=== PATIENT | female | born 1995 | race Caucasian/White ===

== ENCOUNTER 2021-04-23 06:31 | Observation (INO) | payer OTHER, SELFPAY ==
--- NOTE | ~2021-04-23 | CT_ITS ---
EXAMINATION: CT abdomen pelvis w con INDICATION: Abdominal pain TECHNIQUE: Computed tomographic images of the abdomen and pelvis were obtained after the administrati on of 100 cc of Omnipaque 350 intravenous contrast. The dose-length product (DLP) was 1495.74 mGy-cm. Automated exposure control and iterative reconstruction technique were employed. COMPARISON: None available FINDINGS: The lung bases are clear. The heart size is normal. The liver, spleen, pancreas, gallbladde r, and adrenal glands are normal. There is a 2 mm nonobstructing stone of the right kidney. No pathol ogically enlarged abdominal or pelvic lymph nodes are identified. There are mildly dilated loops of s mall bowel in the midabdomen. The distal small bowel is decompressed. There appears to be a transitio n point near the umbilicus. A small amount of free fluid is present in the pelvis. There is no free i ntraperitoneal gas. There is a small amount of edema in the small bowel mesentery. IMPRESSION: 1. Small bowel obstruction. Reviewed, dictated and finalized at location A. IMPRESSION: 1. Small bowel obstruction.
--- NOTE | ~2021-04-23 | XR_ITS ---
EXAMINATION: XR sm bowel follow through WS EXAM DATE: 04/24/2021 09:54 INDICATION: SBO No Related Surg, Lt To Mid Abd Discomfort, Nausea . TECHNIQUE: Pegger radiograph was acquired. Omnipaque/water soluble solution administered for small vinay wel exam performed by radiologist Dajuan Grimes M.D.. KUB images after ingestion of contrast. The DAP f or this procedure was 166 Gycm2. A total of 10 images obtained for the exam. Correlation is made to CT abdomen pelvis from yesterday. FINDINGS: There is mildly dilated jejunum. Bowel loops progressively opacify with normal transit time between 1 and 1.5 hours. Ileal and jejunal fold patterns are normal. There is no small bowel wall t hickening or mass effect displacing small bowel. There are no intraluminal filling defects identifie d. Terminal ileal region unremarkable. IMPRESSION: Mildly dilated jejunum, normal transit time. Ileus. Reviewed, dictated and finalized at location A.
[2021-04-23 06:42] VITALS: BP 152/107; PULSE 101; RESP 20; O2SAT 97
[2021-04-23 06:57] LABS: Basophils Percent Auto 0.1 % (0.2-1.2); Hematocrit 41.5 % (37.0-47.0); Hemoglobin 13.4 g/dL (12.0-15.0); Immature Granulocyte Absolute 0.07 K/mm3 (0.00-0.031); Immature Granulocyte Percent A 0.5 % (0-0.5); Lymphocytes Absolute Auto 0.63 K/mm3 (0.9-3.2); Lymphocytes Percent Auto 4.6 % (18.3-44.2); Mean Corpuscular HGB Conc 32.3 g/dl (32-36); Mean Corpuscular Hemoglobin 27.1 pg (26-34); Mean Corpuscular Volume 83.8 fl (80-100); Mean Platelet Volume 10.1 fl (7.4-10.4); Monocytes Absolute Auto 0.4 K/mm3 (0.1-0.6); Monocytes Percent Auto 2.6 % (2.6-8.5); Neutrophils Absolute Auto 12.7 K/mm3 (1.3-6.7); Neutrophils Percent Auto 92.2 % (45.5-73.1); Platelet Count Result 400 k/mm3 (150-375); Red Blood Count 4.95 M/mm3 (4.2-5.4); Red Cell Distribution Width 14.2 % (11.5-14.5); White Blood Count 13.8 K/mm3 (4.5-10.0)
[2021-04-23 07:18] LABS: Alanine Aminotransferase 16 U/L (4-35); Albumin Level 4.3 g/dL (3.5-5.1); Alkaline Phosphatase 75 U/L (38-126); Anion Gap 13 mmol/L (8-16); Aspartate Amino Transferase 22 U/L (14-36); Bilirubin,Total 0.5 mg/dL (0.2-1.3); Blood Urea Nitrogen 14 mg/dL (7-17); Calcium 9.5 mg/dL (8.4-10.2); Carbon Dioxide 20 mmol/L (22-30); Chloride 105 mmol/L (98-107); Estimated CRCL calculation 145 ml/min; Estimated Glomerular Filt Rate > 60; Glucose 143 mg/dL (65-110); Lipase 102 U/L (23-300); Potassium 4.5 mmol/L (3.4-5.0); Sodium 138 mmol/L (137-145)
[2021-04-23] MEDS: SODIUM CHLORIDE 0.9% IV 1,000 ML 999 ML IV CONT (08:07)
[2021-04-23] MEDS: ONDANSETRON INJ 4 MG/2 ML VIAL IV PUSH (08:07)
[2021-04-23 08:20] LABS: Add Urine Microscopic? YES; Appearance Urine Cloudy (Clear); Bacteria Urine Trace /hpf; Bilirubin Urine Negative (Negative); Color Urine Yellow (Yellow); Glucose Urine UA Negative (Negative); Ketones Urine 1+ mg/dL (Negative); Leukocyte Esterase Ur Trace LEU/UL (Negative); Mucus Urine Heavy /lpf; Nitrate Urine Negative (Negative); Protein Urine 2+ mg/dL (Negative); Squamous Epithelial Cell Urine Many /hpf (Few); Urobilinogen Urine Negative mg/dL (<2.0)
[2021-04-23 08:25] LABS: Blood Urine Negative (Negative); Specific Grav Ur 1.033 (1.001-1.035)
--- NOTE | 2021-04-23 10:02 | ED.ABDPAIN ---
HPI - Abdominal Pain General Chief Complaint: Abdominal Pain Stated Complaint: ABD pain, N/V x1 day Time Seen by Provider: 04/23/21 07:11 Source: patient History of Present Illness HPI narrative: Patient presents with abdominal pain. Reports abdominal pain for the past 1 to 2 days. Pain is primarily around her bellybutton is associated with nausea and vomiting. Pain is sharp, constant, no clear aggravating or alleviating factors. Denies any diarrhea or constipation. Any fevers, cough, congestion her pain does not radiate. She denies any chest pain or shortness of breath. Related Data Home Medications Medication Instructions Recorded Confirmed bupropion HCl 300 mg PO QAM 04/23/21 04/23/21 buspirone 15 mg TID 04/23/21 04/23/21 ergocalciferol (vitamin D2) 04/23/21 risperidone 1 mg PO DAILY 04/23/21 04/23/21 venlafaxine 225 mg PO DAILY 04/23/21 04/23/21 Allergies Allergy/AdvReac Type Severity Reaction Status Date / Time No Known Allergies Allergy Unknown Verified 04/23/21 12:49 Review of Systems Review of Systems: CONSTITUTIONAL: Denies fever, chills, or sweats. EYES: Denies visual changes, redness, or discharge. ENT: Denies rhinorrhea, congestion, sore throat, or otalgia. CARDIOVASCULAR: Denies chest pain, palpitations, or edema. RESPIRATORY: Denies cough or dyspnea. GASTROINTESTINAL: Reports abdominal pain nausea and vomiting. GENITOURINARY: Denies dysuria or hematuria. SKIN: Denies rash or itching. MUSCULOSKELETAL: Denies back pain, joint pain, or myalgia. NEUROLOGIC: Denies headache, numbness, dizziness, or weakness. PSYCHIATRIC: Denies anxiety or depression. 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 Nonsmoker. Denies alcohol and illicit substance use. She designates her mother Margaret Whittington as her surrogate decision maker. Code status: Full code. Exam Narrative: GENERAL: Well-appearing, well-nourished, and in no acute distress. HEAD: Normocephalic, atraumatic. EYES: PERRLA and EOMI. ENT: Nares clear, no rhinorrhea or epistaxis. Mucous membranes moist. NECK: Supple. No masses. No JVD CHEST: Clear to auscultation. No respiratory distress. No wheezes rales or rhonchi HEART: Regular rate and rhythm. No murmur heard. Normal peripheral pulses. ABDOMEN: Moderate tenderness in the abdomen most noted around the umbilicus, nondistended, normal active bowel sounds. EXTREMITIES: Normal range of motion. No edema. SKIN: Warm, dry, no rash. NEURO: No focal deficits. Alert and oriented x3. PSYCH: Normal mood and affect. Course Reevaluation(s) Reevaluation #1: Discussed with patient and general surgery. Primary concern is for small bowel obstruction patient will be admitted to the hospitalist team with surgery following along. Patient comfortable with inpatient plan. Date: 04/23/21 Time: 10:04 Vital Signs Vital signs: Vital Signs Pulse Rate 101 H 04/23/21 06:42 Respiratory Rate 20 04/23/21 06:42 Blood Pressure 152/107 H 04/23/21 06:42 Pulse Oximetry 97 04/23/21 06:42 Temperature 36.5 C 04/23/21 13:09 Pulse Rate 104 H 04/23/21 13:09 Respiratory Rate 18 04/23/21 13:09 Blood Pressure 146/79 H 04/23/21 13:09 Pulse Oximetry 94 04/23/21 13:09 MDM - Abdominal Pain MDM Narrative Medical decision making narrative: Patient presented with abdominal pain and nausea and vomiting. Labs and imagin
[2021-04-23] MEDS: fentaNYL CITRATE INJ (*CRX) 100 MCG/2 ML VIAL 50 MCG IV PUSH ×2 (10:33→14:41)
--- NOTE | 2021-04-23 10:51 | PC.NURSE ---
attempted 18Fr NGT x2 without success. EDP notified. Will attempt with smaller gauge.
--- NOTE | 2021-04-23 11:53 | PC.NURSE ---
14Fr NGT attempted x2. Pt not tolerating well. EDP notified.
[2021-04-23 12:37] VITALS: PULSE 104; RESP 16; TEMP 36.6; O2SAT 99
--- NOTE | 2021-04-23 12:47 | ADMGEN ---
This patient, Cheryl Reddy, was admitted to Medical Room 340-01. Patient/family oriented to hospital policies and general routines including ID bracelet, bed and alarms, visiting hours, pain management, procedures, bathroom and other care routines, personal items, smoking policy, room service/diet, and visiting hours. Information on how to activate the Rapid Response Team has been discussed. Patient/Family are encouraged to report perceived risks to care and to ask questions if they do not understand what they are told or what they should do.
[2021-04-23 13:09] VITALS: BP 146/79; PULSE 104; RESP 18; TEMP 36.5; O2SAT 94
--- NOTE | 2021-04-23 13:58 | PC.NURSE ---
This nurse attempted to place a NG tube, patient grabbed nurses hand when she started advancing the tube and stated NO, I don't want this STOP Hospitalist made aware of patient refusing NG tube placement.
--- NOTE | 2021-04-23 14:00 | PM.IMHP ---
H&P: HPI History of Present Illness Date/Time: 04/23/21 14:00 Chief Complaint: Abdominal pain, nausea, and vomiting. Narrative: This is a 25-year-old female with bipolar disorder, depression, anxiety who presented to the emergency department earlier this morning via private vehicle from home for evaluation of abdominal pain, nausea, and vomiting. Two days ago she developed pretty sudden onset of mid abdominal cramping associated with nausea and several episodes of emesis. Initially she thought she possibly had food poisoning however no one else who ate the same meal had similar symptoms. Her symptoms continued overnight and she did not sleep well due to the pain and thus she came in today for evaluation. CT of the abdomen and pelvis showed findings concerning for small-bowel obstruction and she is being admitted in this setting. Unfortunately the patient was not very cooperative and could not tolerate NG placement. She continues to have mild periumbilical cramping and some nausea but she has not had any further episodes of emesis. She denies flatus however has had some episodes of belching. She has never had similar symptoms in the past. She does mention having a pretty substantial abdominal surgery as an though she does not recall what was done. Review of Systems Review of Systems: Twelve systems were reviewed. No fever, chills, or sweats. No recent cold or flu symptoms. She denies chest pain shortness of breath. No hematemesis, melena, or hematochezia. Last menstrual period was on 04/04/2021. Except as documented, all other systems were reviewed and are negative. [facility] Past Medical History Medical History (Updated 04/23/21 @ 22:31 by Lenore Chowdhury PA-C) Anxiety Bipolar disorder Depression Surgical History Surgical History (Updated 04/23/21 @ 22:31 by Lenore Chowdhury PA-C) History of open reduction and internal fixation (ORIF) procedure Right foot fracture. Hx of abdominal surgery Surgery as an , likely pyloric stenosis or malrotation. Family History Family History Mother ESRD (end stage renal disease) on dialysis Social History Social History Social History: The patient lives in [place]. Nonsmoker. Denies alcohol and illicit substance use. She designates her mother Margaret Whittington as her surrogate decision maker. Code status: Full code. Meds Home Medications and Allergies Home Medications Medication Instructions Recorded Confirmed Type bupropion HCl 300 mg PO QAM 04/23/21 04/23/21 History buspirone 15 mg TID 04/23/21 04/23/21 History ergocalciferol (vitamin D2) 04/23/21 History risperidone 1 mg PO DAILY 04/23/21 04/23/21 History venlafaxine 225 mg PO DAILY 04/23/21 04/23/21 History Allergies Allergy/AdvReac Type Severity Reaction Status Date / Time No Known Allergies Allergy Unknown Verified 04/23/21 12:49 Vital Signs Vital Signs - 24 hr 04/23/21 06:42 04/23/21 12:37 04/23/21 13:09 Temperature 97.8 F 97.7 F Pulse Rate 101 H 104 H 104 H Respiratory Rate 20 16 18 Blood Pressure 152/107 H 146/79 H Pulse Oximetry 97 99 94 Exam Narrative: General: Well-developed female lying on her left side in bed in no acute distress. Weight: 13 kg. BMI: 44.1. HEENT: PERRL, EOMI. Sclerae anicteric. Tacky mucous membranes. Neck: Supple. Respiratory: Lungs are clear to auscultation bilaterally. Cardiovascular: Regular rate and rhythm with S1-S2. Gastrointestinal: Abdomen is soft and obese with hypoactive bowel sounds. She is tender to palpation in the periumbilical region. Upper abdominal scar noted from surgery as an . Skin: Warm and dry. No rash or lesions on limited exam. Extremities: No cyanosis, clubbing, or edema. Radial and pedal pulses intact. Neurological: Alert. Cranial nerves 2-12 are grossly intact. No gross focal deficits to casual conversation
[2021-04-23] MEDS: SODIUM CHLORIDE 0.9% IV 1,000 ML 125 ML IV CONT ×2 (14:42→22:32)
--- NOTE | 2021-04-23 16:05 | PM.CNGS ---
Assessment and Plan Assessment and plan (1) Small bowel obstruction: Code(s): K56.609 - Unspecified intestinal obstruction, unspecified as to partial versus complete obstruction Status: Acute Assessment and Plan: I have reviewed the CT. There does appear to be some dilated small bowel and then distal decompressed small bowel as well as some mesenteric edema. Do not see a closed-loop bowel obstruction, but this does appear possibly to be a bowel obstruction related to adhesions from her surgery as an . Other potential diagnoses include gastroenteritis or food bolus. NG tube placement was attempted, however patient unable to tolerate placement and was not very cooperative. I discussed importance of trying to have NG tube placed to decompress the bowel, but I do not anticipate this being very successful. Will plan for a Gastrografin small-bowel follow-through in a.m.. Discussed possibility of requiring surgical exploration if bowel obstruction persists. (2) Bipolar disorder: Code(s): F31.9 - Bipolar disorder, unspecified Status: Acute (3) BMI 40.0-44.9, adult: Code(s): Z68.41 - Body mass index [BMI] 40.0-44.9, adult Status: Acute (4) Hx of abdominal surgery: Code(s): Z98.890 - Other specified postprocedural states Status: Inactive History of Present Illness Consult details Consult date: 04/23/21 Reason for consult: other (small bowel obstruction) Requesting physician: Kai Santana MD Narrative: This is a 25-year-old woman who presented to the emergency department with complaints of abdominal pain that started 2 days ago. I am asked to see her in regards to a possible small-bowel obstruction. She states that she was having normal bowel movements, but 2 days ago began experiencing abdominal pain. She has been experiencing nausea and vomiting as well. She did have a bowel movement last night that she states was normal. She is not currently passing any flatus. She has never had any symptoms like this before. She does not recall anything in particular that she ate that could have caused this, and she reports no other ill contacts. She did have some kind of abdominal surgery as an infant and has an upper abdominal transverse scar extending from just above her umbilicus out lateral to the right. She is not sure what particular type of surgery she had. NG tube placement was attempted in the emergency department, but patient states that they were unable to place the tube due to her having too much discomfort. Review of Systems Review of Systems: All systems reviewed & are unremarkable except as noted in HPI and below Constitutional: Constitutional: Denies chills and Denies fever(s) Eyes: Eyes: Denies change in vision ENT: Denies hearing loss, Denies neck pain and Denies sore throat Cardiovascular: Cardiovascular: Denies chest pain and Denies dyspnea Respiratory: Respiratory: Denies cough, Denies dyspnea and Denies wheezing Gastrointestinal: Gastrointestinal: Reports as per HPI Genitourinary: Genitourinary: Denies hematuria and Denies dysuria Musculoskeletal: Musculoskeletal: Denies arthralgias, Denies joint swelling and Denies neck pain Allergic/Immunologic: Allergic/Immunologic: Denies wheezing [facility] Past Medical History Medical History (Updated 04/23/21 @ 16:17 by Rubens Phoenix DO) Bipolar disorder Surgical History Surgical History (Updated 04/23/21 @ 16:17 by Rubens Phoenix DO) Hx of abdominal surgery surgery as an infant, likely pyloric stenosis or malrotation Family History Family History Mother ESRD (end stage renal disease) on dialysis Social History Social History Social History: The patient lives in [place]. Nonsmoker. Denies alcohol and illicit substance use. She designates her mother Margaret Whittington as her surrogate dec
--- NOTE | 2021-04-23 19:26 | PC.NURSE ---
Dr. Phoenix is aware that no NG tube was placed.
[2021-04-23 21:16] VITALS: PULSE 100; RESP 18; O2SAT 96
[2021-04-23 22:00] VITALS: BP 143/53; PULSE 81; RESP 16; TEMP 36.2; O2SAT 99
[2021-04-24 04:26] VITALS: BP 151/75; PULSE 84; RESP 16; TEMP 36.4; O2SAT 97
[2021-04-24 06:06] LABS: Hematocrit 33.9 % (37.0-47.0); Hemoglobin 10.5 g/dL (12.0-15.0); Mean Corpuscular Hemoglobin 26.9 pg (26-34); Mean Corpuscular Volume 86.9 fl (80-100); Mean Platelet Volume 10.1 fl (7.4-10.4); Platelet Count Result 294 k/mm3 (150-375); Red Cell Distribution Width 14.6 % (11.5-14.5); White Blood Count 8.1 K/mm3 (4.5-10.0)
[2021-04-24 06:22] LABS: Anion Gap 7 mmol/L (8-16); Blood Urea Nitrogen 11 mg/dL (7-17); Carbon Dioxide 25 mmol/L (22-30); Chloride 108 mmol/L (98-107); Estimated CRCL calculation 126 ml/min; Estimated Glomerular Filt Rate > 60; Glucose 101 mg/dL (65-110); Magnesium 2.2 mg/dL (1.6-2.3); Potassium 3.1 mmol/L (3.4-5.0); Sodium 140 mmol/L (137-145)
[2021-04-24] MEDS: SODIUM CHLORIDE 0.9% IV 1,000 ML 125 ML IV CONT (06:33)
--- NOTE | 2021-04-24 08:21 | PC.NURSE ---
0810 patient taken to xray by ronda.
--- NOTE | 2021-04-24 11:29 | PM.PNGS ---
Progress Note: A&P Assessment and Plan (1) Small bowel obstruction: Code(s): K56.609 - Unspecified intestinal obstruction, unspecified as to partial versus complete obstruction Status: Acute Assessment and Plan: I reviewed the small-bowel follow-through. No evidence of obstruction. Will begin patient on clear liquid diet and advance as tolerated. Okay to discharge from surgical standpoint. Patient may have just had reactive ileus to gastroenteritis. (2) Bipolar disorder: Code(s): F31.9 - Bipolar disorder, unspecified Status: Acute (3) BMI 40.0-44.9, adult: Code(s): Z68.41 - Body mass index [BMI] 40.0-44.9, adult Status: Acute (4) Nausea & vomiting: Qualifiers: Vomiting Intractability: intractable Vomiting type: unspecified Qualified Code(s): R11.2 - Nausea with vomiting, unspecified Code(s): R11.2 - Nausea with vomiting, unspecified Status: Acute Subjective Subjective Date/Time Seen: 04/24/21 11:29 Interval history: no more nausea or vomiting. Patient still having some abdominal pain. States she has not had a bowel movement yet. Exam GI: Inspection: non-distended and obesity GI Palp: Yes Soft to palpation and Yes Tenderness to palpation present (GI) ( Mild generalized tenderness) Auscultation: normal bowel sounds Objective Data Vital Signs Vital Signs: Vital Signs - 24 hr 04/23/21 12:37 04/23/21 13:09 04/23/21 21:16 Temperature 36.6 C 36.5 C Pulse Rate 104 H 104 H 100 Respiratory Rate 16 18 18 Blood Pressure 146/79 H Pulse Oximetry 99 94 96 04/23/21 22:00 04/24/21 04:26 Temperature 36.2 C L 36.4 C Pulse Rate 81 84 Respiratory Rate 16 16 Blood Pressure 143/53 H 151/75 H Pulse Oximetry 99 97 Intake/Output Intake/Output: Intake & Output 04/21/21 04/22/21 04/23/21 04/24/21 23:59 23:59 23:59 23:59 Intake Total 2000 1000 Output Total 100 200 Balance 1900 800 Meds/Results Medications: Active Medications Generic Name Dose Route Start Last Admin Trade Name Freq PRN Reason Stop Dose Admin Acetaminophen 650 mg 04/24/21 10:55 Acetaminophen 325 Mg Tablet PO Q6H PRN pain or fever Bupropion HCl 300 mg 04/24/21 10:55 Bupropion Hcl Xl (24 Hr) 150 Mg Tabcr PO QAM [facility] Buspirone HCl 15 mg 04/24/21 10:55 Buspirone Hcl 5 Mg Tablet PO TID [facility] Fentanyl Citrate 50 mcg 04/23/21 10:07 04/23/21 14:41 Fentanyl Citrate Inj (*Crx) 100 Mcg/2 Ml Vial IV PUSH 50 mcg Q2H PRN Administration Pain Rated 7-10 Sodium Chloride 1,000 mls @ 125 mls/hr 04/23/21 10:10 04/24/21 06:33 Normal Saline Iv IV CONT 125 mls/hr .Q8H RAMANA Administration Potassium Chloride 500 mls @ 125 mls/hr 04/24/21 08:30 04/24/21 10:07 Kcl 40 Meq/D5w 500 Ml Peripheral IVPB 04/24/21 12:29 125 mls/hr ONCE ONE Administration Ondansetron HCl 4 mg 04/23/21 10:07 Ondansetron Inj 4 Mg/2 Ml Vial IV PUSH Q4H PRN Nausea Risperidone 1 mg 04/24/21 10:55 Risperidone 1 Mg Tablet PO DAILY [facility] Venlafaxine HCl 225 mg 04/24/21 11:00 Venlafaxine Hcl Xr 75 Mg Cap.Er.24h PO DAILY [facility] Radiology Results: ITS Impressions Abdomen/Pelvis CT 04/23/21 08:07 IMPRESSION: 1. Small bowel obstruction. Small Bowel X-Ray 04/24/21 09:56 IMPRESSION: Mildly dilated jejunum, normal transit time. Ileus. Labs Labs: Laboratory Results - last 24 hr 04/24/21 04/24/21 05:13 05:13 WBC 8.1 RBC 3.90 L Hgb 10.5 L Hct 33.9 L MCV 86.9 MCH 26.9 MCHC 31.0 L RDW 14.6 H Plt Count 294 MPV 10.1 Sodium 140 Potassium 3.1 L Chloride 108 H Carbon Dioxide 25 Anion Gap 7 L BUN 11 Creatinine 0.70 Estim Creat Clear Calc 126 Estimated GFR > 60 Glucose 101 Calcium 8.0 L Magnesium 2.2 Quality VTE Prophylaxis VTE prophylaxis: mechanical ordered Amg Follow-up Billing Inpatient Follow-up [id number] [address]
[2021-04-24] MEDS: ACETAMINOPHEN 325 MG TABLET 650 MG PO (11:32)
[2021-04-24] MEDS: VENLAFAXINE HCL XR 75 MG CAP.ER.24H 225 MG PO (11:32)
[2021-04-24] MEDS: buPROPion HCL XL (24 HR) 150 MG TABCR 300 MG PO (11:32)
[2021-04-24] MEDS: busPIRone HCL 5 MG TABLET 15 MG PO (11:33)
[2021-04-24 14:00] VITALS: BP 112/97; PULSE 85; RESP 20; TEMP 36.2; O2SAT 98
--- NOTE | 2021-04-24 15:22 | PM.DS ---
DS: Admitting Diagnosis Discharge Date 04/24/21 Admitting Diagnosis sbo DS: Discharge Diagnosis Discharge Diagnosis (1) Small bowel obstruction: Code(s): K56.609 - Unspecified intestinal obstruction, unspecified as to partial versus complete obstruction Status: Acute (2) Elevated blood pressure reading: Code(s): R03.0 - Elevated blood-pressure reading, without diagnosis of hypertension Status: Acute (3) Bipolar disorder: Code(s): F31.9 - Bipolar disorder, unspecified Status: Acute (4) Depression: Code(s): F32.A - Depression, unspecified Status: Acute (5) Anxiety: Code(s): F41.9 - Anxiety disorder, unspecified Status: Acute (6) BMI 40.0-44.9, adult: Code(s): Z68.41 - Body mass index [BMI] 40.0-44.9, adult Status: Acute DS: Summary Hospital Course Hospital Course: dos 04/24/21 Patient is a 25-year-old female with a past medical history of bipolar disorder who presented emergency room on 04/23/2021 for abdominal pain with nausea and vomiting without associated diarrhea or constipation. Vitals in the ER were pulse 101, respiratory rate 20, blood pressure 152/107, pulse ox 97 on room air, temperature 36.5? C. Initial white blood cell count 13.8, hemoglobin 13.4, hematocrit 41.5, platelets 400. BMP relatively normal with the exception of CO2 20 and renal glucose 143. Urine test negative. UA shows evidence of contamination, no UTI suspected and urine culture negative. Abdominal CT showed small-bowel obstruction and patient was admitted to the hospitalist service. She had history of abdominal surgery as a child but did not remember the specifics. She refused an NG tube during her stay the likely her symptoms improved gradually. Small-bowel follow-through the next day showed mildly dilated jejunal with a normal transit time suggesting possible ileus. The patient's diet was increased and she tolerated a regular diet the day of discharge. Her blood pressure did run high occasionally. Blood pressure could be high due to pain and IV fluids. Patient has no history of hypertension but is overweight. I recommended that she follow-up with a primary care physician in 1-2 weeks about this stay if she continues to be high she needs to talk to them about starting medication outpatient. She understands untreated high blood pressure can cause heart attacks and strokes. Overall, the patient was back to baseline with no complaints. She was educated about the worrisome signs and symptoms to come back to emergency room for and was discharged in stable condition Time Spent with Patient Time attestation: Total time spent providing and/or coordinating discharge services: 38 minutes Exam Narrative: General: Well developed well nourished patient in NAD HEENT: normocephalic Neck: supple Neuro: Alert and oriented x4 CV:RRR Resp:CTA Abd: Soft, non distended. Slight pain to palpation. Positive bowel sounds Extremities: No swelling, erythema, or pain to palpation. DS: Data Data Completed and Pending Labs on day of discharge: Labs from last 24 hours 04/24/21 04/24/21 05:13 05:13 WBC 8.1 RBC 3.90 L Hgb 10.5 L Hct 33.9 L MCV 86.9 MCH 26.9 MCHC 31.0 L RDW 14.6 H Plt Count 294 MPV 10.1 Sodium 140 Potassium 3.1 L Chloride 108 H Carbon Dioxide 25 Anion Gap 7 L BUN 11 Creatinine 0.70 Estim Creat Clear Calc 126 Estimated GFR > 60 Glucose 101 Calcium 8.0 L Magnesium 2.2 Discharge Plan Discharge Attending physician on discharge: Vidal Carbone Consulting providers: Rubens Phoenix Discharging Clinician: Michela Vasquez Patient Disposition: Home, Self-Care Activity: as tolerated Diet: as tolerated and regular Discharge Instructions: -Follow up with a primary care doctor. I have provided you with a number to the one who was oim consultant when you came in. Talk to them about your blo
== END 2021-04-24 18:26 | disposition home or self-care (01) ==
LOC: ANHED 10:06 → ANH3MED 12:08
PROVIDERS: General Practice; Physician Assistant; Admitting Provider Internal Medicine; Emergency Provider Emergency Medicine; Visit Provider Family Medicine
DX: K56.609 Unspecified intestinal obstruction, unspecified as to partial versus complete obstruction (principal); R03.0 Elevated blood-pressure reading, without diagnosis of hypertension; F31.9 Bipolar disorder, unspecified; F41.8 Other specified anxiety disorders
CPT/HCPCS: 36415; 74177; 74250; 80048; 80053; 81001; 81025; 83690; 83735; 85025; 85027; 87086; 96361; 96374; 96375; 96376; 99285; A9270; G0378; G0379; J2405; J3010; J3480; J7030; Q9967

== ENCOUNTER → 2021-05-28 02:09 | Outpatient (CLI) | payer OTHER, SELFPAY ==
[2021-05-28 17:54] LABS: SARS-CoV-2 RNA PCR Positive
== END ==
PROVIDERS: PCP Physician Assistant; Visit Provider Physician Assistant
DX: U07.1 COVID-19 (principal)
CPT/HCPCS: C9803; U0003; U0005

== ENCOUNTER 2021-07-01 13:22 | Emergency (ER) | payer OTHER, SELFPAY ==
--- NOTE | ~2021-07-01 | CT_ITS ---
EXAMINATION: CT abdomen pelvis w con DATE: 07/01/2021 15:36 INDICATION: Right flank pain. TECHNIQUE: Computed tomography (CT) of the abdomen and pelvis was performed with 100 mL Omnipaque 350 intravenous contrast. Automated exposure control and iterative reconstruction technique were employe d. The dose-length product was 1349.30 mGy-cm. COMPARISON: CT abdomen and pelvis 04/23/2021 FINDINGS: The visualized portions of the lung bases demonstrate minimal atelectasis. No pleural effus ion. The heart size is normal. No pericardial effusion. The liver, gallbladder, spleen, pancreas, adr enal glands, and left kidney are normal. There is a delayed right-sided contrast nephrogram. There is mild right hydronephrosis and hydroureter. There is asymmetric edema around right kidney. There is a 3 mm stone in distal right ureter. There are no dilated loops of bowel. The appendix is normal. Ther e are no pathologically enlarged lymph nodes. There is no free intraperitoneal fluid. There is mild t horacolumbar spondylosis. IMPRESSION: 1. 3 mm stone in distal right ureter with mild right hydronephrosis and hydroureter. Reviewed, dictated and finalized at location A. D CARE NURSE IMPRESSION: 1. 3 mm stone in distal right ureter with mild right hydronephrosis and hydrour eter.
[2021-07-01 13:25] VITALS: BP 149/84; PULSE 119; RESP 18; TEMP 36.6; O2SAT 99
[2021-07-01 13:48] VITALS: BP 150/94; PULSE 101; RESP 16; TEMP 36.7; O2SAT 97
--- NOTE | 2021-07-01 13:50 | PC.NURSE ---
Addendum entered by Terri Subramanian RN 07/01/21 14:16: Pt was able to stand up on own with staff around her. Pt is alert & oriented x 4, no distress noted. Pt has no other complaints. Original Note: pt was seen lying on the floor while this rn triaging a pt. pt was lying face down on the floor in the waiting room, pt was awake, stated she passed out. this rn did not hear her fall. pt brought back into triage area, vs taken, ed charge made aware. pt currently sitting in waiting room, in a w/c in front of intake desk.
--- NOTE | 2021-07-01 14:39 | ED.ABDPAIN ---
HPI - Abdominal Pain General Chief Complaint: Abdominal Pain Stated Complaint: R sided flank pain Time Seen by Provider: 07/01/21 14:31 Source: patient Mode of arrival: ambulatory Limitations: no limitations History of Present Illness HPI narrative: 26 years old white female presents with right abdominal pain radiating to right flank area wake her up at 3 AM associated with nausea and vomiting. Patient denies having similar symptoms. Patient is not vaccinated for COVID. She is telling me that she does not believe in Covid. History of depression, bipolar, she does not smoke or drink or uses drugs. Related Data Home Medications Medication Instructions Recorded Confirmed bupropion HCl 300 mg PO QAM 04/23/21 04/23/21 buspirone 15 mg TID 04/23/21 04/23/21 risperidone 1 mg PO DAILY 04/23/21 04/23/21 venlafaxine 225 mg PO DAILY 04/23/21 04/23/21 Allergies Allergy/AdvReac Type Severity Reaction Status Date / Time No Known Allergies Allergy Unknown Verified 07/01/21 15:11 Review of Systems Review of Systems: CONSTITUTIONAL: Denies fever, chills, or sweats. EYES: Denies visual changes, redness, or discharge. ENT: Denies rhinorrhea, congestion, sore throat, or otalgia. CARDIOVASCULAR: Denies chest pain, palpitations, or edema. RESPIRATORY: Denies cough or dyspnea. GASTROINTESTINAL: Denies abdominal pain, nausea, vomiting, or diarrhea. GENITOURINARY: Denies dysuria or hematuria. SKIN: Denies rash or itching. MUSCULOSKELETAL: Denies back pain, joint pain, or myalgia. NEUROLOGIC: Denies headache, numbness, or weakness. PSYCHIATRIC: Denies anxiety or depression. [facility] Past Medical History Medical History Anxiety Bipolar disorder Depression Surgical History Surgical History History of open reduction and internal fixation (ORIF) procedure Right foot fracture. Hx of abdominal surgery Surgery as an infant, likely pyloric stenosis or malrotation. Family History Family History Mother ESRD (end stage renal disease) on dialysis Social History Social History Social History: The patient lives in [place]. Nonsmoker. Denies alcohol and illicit substance use. She designates her mother Margaret Whittington as her surrogate decision maker. Code status: Full code. Exam Narrative: General appearance: Well-developed, well-nourished Skin: Normal color Head: Normocephalic, nontraumatic Eyes: Clear conjunctiva ENT: Oropharynx normal, ears normal, nose normal Neck: Supple, nontender Chest and respiratory: Airway patent, no respiratory distress, no accessory muscle use Heart: Regular rate/rhythm Abdomen: Soft, right abdominal tenderness through the right lower and right upper quadrant, right flank tenderness, no organomegaly, quiet bowel sounds Vascular: Normal peripheral pulses, normal capillary refill. Musculoskeletal: Normal range of motion, nontender back Neurologic: Alert and oriented ?3, MRI TECHNICIAN is normal as tested, no gross motor deficit Course Course Emergency Course: Stable Vital Signs Vital signs: Vital Signs Temperature 36.6 C 07/01/21 13:25 Pulse Rate 119 H 07/01/21 13:25 Respiratory Rate 18 07/01/21 13:25 Blood Pressure 149/84 H 07/01/21 13:25 Pulse Oximetry 99 07/01/21 13:25 Temperature 36.7 C 07/01/21 13:48 Pulse Rate 85 07/01/21 15:09 Respiratory Rate 18 07/01/21 15:09 Blood Pressure 161/86 H 07/01/21 15:09 Pulse Oximetry 100 07/01/21 15:09 MDM - Abdominal Pain MDM Narrative Medical decision gabrielle
[2021-07-01] MEDS: MORPHINE SULFATE (*CRX) 4 MG/ML INJ IV PUSH (15:06)
[2021-07-01] MEDS: ONDANSETRON INJ 4 MG/2 ML VIAL IV PUSH (15:06)
[2021-07-01 15:07] LABS: Basophils Percent Auto 0.2 % (0.2-1.2); Hematocrit 41.4 % (37.0-47.0); Hemoglobin 13.3 g/dL (12.0-15.0); Immature Granulocyte Absolute 0.04 K/mm3 (0.00-0.031); Immature Granulocyte Percent A 0.3 % (0-0.5); Lymphocytes Absolute Auto 0.53 K/mm3 (0.9-3.2); Mean Corpuscular HGB Conc 32.1 g/dl (32-36); Mean Corpuscular Volume 84.1 fl (80-100); Mean Platelet Volume 10.1 fl (7.4-10.4); Monocytes Absolute Auto 0.7 K/mm3 (0.1-0.6); Monocytes Percent Auto 5.4 % (2.6-8.5); Neutrophils Percent Auto 90.1 % (45.5-73.1); Platelet Count Result 312 k/mm3 (150-375); Red Blood Count 4.92 M/mm3 (4.2-5.4); White Blood Count 13.3 K/mm3 (4.5-10.0)
[2021-07-01] MEDS: SODIUM CHLORIDE 0.9% IV 1,000 ML 999 ML IV CONT (15:07)
[2021-07-01 15:09] VITALS: BP 161/86; PULSE 85; RESP 18; O2SAT 100
[2021-07-01 15:15] LABS: Add Urine Microscopic? YES; Appearance Urine Clear (Clear); Bilirubin Urine Negative (Negative); Blood Urine Negative (Negative); Color Urine Yellow (Yellow); Glucose Urine UA Negative (Negative); Ketones Urine Negative (Negative); Leukocyte Esterase Ur Negative LEU/UL (Negative); Mucus Urine Rare /lpf; Nitrate Urine Negative (Negative); Protein Urine 1+ mg/dL (Negative); Specific Grav Ur 1.029 (1.001-1.035); Squamous Epithelial Cell Urine Many /hpf (Few); Urobilinogen Urine Negative mg/dL (<2.0); WBC Urine 0-3 /hpf
[2021-07-01 15:18] LABS: Alanine Aminotransferase 16 U/L (4-35); Albumin Level 4.8 g/dL (3.5-5.1); Alkaline Phosphatase 82 U/L (38-126); Anion Gap 10 mmol/L (8-16); Aspartate Amino Transferase 22 U/L (14-36); Bilirubin,Total 0.4 mg/dL (0.2-1.3); Blood Urea Nitrogen 15 mg/dL (7-17); Calcium 9.9 mg/dL (8.4-10.2); Carbon Dioxide 26 mmol/L (22-30); Chloride 102 mmol/L (98-107); Estimated CRCL calculation 69 ml/min; Estimated Glomerular Filt Rate 49; Glucose 132 mg/dL (65-110); Lipase 59 U/L (23-300); Potassium 4.6 mmol/L (3.4-5.0); Sodium 138 mmol/L (137-145)
[2021-07-01] MEDS: KETOROLAC 30 MG/ML VIAL (*BKC) IV PUSH (16:48)
[2021-07-01 16:53] VITALS: BP 152/76; PULSE 79; RESP 18; O2SAT 99
[2021-07-01] MEDS: TAMSULOSIN HCL 0.4 MG CAPSULE PO (16:53)
== END 2021-07-01 17:18 | disposition home or self-care (01) ==
PROVIDERS: Emergency Provider Emergency Medicine
DX: N13.2 Hydronephrosis with renal and ureteral calculous obstruction (principal); F41.9 Anxiety disorder, unspecified; F31.9 Bipolar disorder, unspecified
CPT/HCPCS: 36415; 74177; 80053; 81001; 81025; 83690; 85025; 96361; 96374; 96375; 99284; A9270; J1885; J2270; J2405; J7030; Q9967

== ENCOUNTER 2023-01-24 01:03 | Day surgery (SDC) | payer OTHER, SELFPAY ==
[2022-12-19 14:15] VITALS: BMI 45.3
--- NOTE | 2022-12-19 14:54 | SUR.PREOP ---
Report to the Outpatient Waiting Room, entrance under the green pavilion located off [facility], at time 0600 on date 12/28/22. Planned Procedure Time: 0730. Time changes happen often and if your time is changed the preop area will call you the afternoon before. - You and your visitor will be asked to self-screen and do not enter if you have any COVID symptoms. - A mask is optional within the hospital at this time. Patients may have clear liquids (water, carbonated beverages, clear teas, apple juice) until 3 hours prior to surgery with a maximum of 20 ounces. - No food from midnight until time of surgery - Infants may have breast milk until 4 hours before surgery, infant formula 6 hours prior to surgery. - Children will be allowed to drink immediately following surgery. If applicable, please bring a bottle or sippy cup to assist with drinking. Juice, water, soda, and popsicles are readily available. For infants on formula, please bring formula the day of surgery. Pacifiers are allowed. Take the following medications with a SIP of water the morning of surgery: bupropion, buspirone, risperidone DO NOT STOP ANY OF YOUR OTHER PRESCRIPTION MEDICATIONS PRIOR TO SURGERY ?EXCEPT THE FOLLOWING Medications to discontinue per physician stop all vitamins and suppliments 3 days prior Date to take last dose 12/25/22 Please no make-up, nail lao, hairspray, perfume, deodorant, or body powder the day of surgery. No jewelry (including any body piercings) or valuables the day of surgery, leave them at home. Please take a shower or bath the night before, or the morning of, surgery with an antibacterial soap. Wear comfortable, loose fitting clothing. Children are encouraged to wear pajamas. - Jewelry must be removed prior to entering the operating room. Rings and piercings that are not removed may be cut off. - The hospital will not accept responsibility for valuables. - Please leave all valuables, including medications, at home the day of surgery. If you are going home after surgery, a licensed medical delivery driver must drive you home. - NO public transportation without another adult if you receive anesthesia. - We recommend that an adult stay with you for 24 hours following discharge. - We also recommend that you do not drive, make important decision, drink alcoholic beverages, or take any drugs that were not prescribed by your health care provider for at least 24 hours after your discharge time. For Pediatric surgeries, we recommend two adults accompany the child home. Follow any additional instructions given to you from your surgeon. If you or anyone in your household have experienced Covid symptoms in the past week, please notify your surgeon or the nurse liaison at the phone number below for possible testing. Telephone instructions given to xochilt harris with help from her radha and asked if any additional questions and then verbalized understanding. Patient advised to call surgeon office or pre surgery nurse liaison [phone] if any additional questions.
--- NOTE | 2023-01-16 13:36 | PC.NURSE ---
Report to the Outpatient Waiting Room, entrance under the green pavilion located off [facility], at time _0600_ on date _01/24/23__. Planned Procedure Time: _0730__. Time changes happen often and if your time is changed the preop area will call you the afternoon before. - You and your visitor will be asked to self-screen and do not enter if you have any COVID symptoms. - A mask is optional within the hospital at this time. Patients may have clear liquids (water, carbonated beverages, clear teas, apple juice) until 3 hours prior to surgery with a maximum of 20 ounces. - No food from midnight until time of surgery Take the following medications with a SIP of water the morning of surgery: _Bupropion and Buspiron_ DO NOT STOP ANY OF YOUR OTHER PRESCRIPTION MEDICATIONS PRIOR TO SURGERY ?EXCEPT THE FOLLOWING Medications to discontinue per physician ___vitamins or supplements 3 days prior___ Date to take last dose Please no make-up, nail macedonian, hairspray, perfume, deodorant, or body powder the day of surgery. No jewelry (including any body piercings) or valuables the day of surgery, leave them at home. Please take a shower or bath the night before, or the morning of, surgery with an antibacterial soap. Wear comfortable, loose fitting clothing. Children are encouraged to wear pajamas. - Jewelry must be removed prior to entering the operating room. Rings and piercings that are not removed may be cut off. - The hospital will not accept responsibility for valuables. - Please leave all valuables, including medications, at home the day of surgery. If you are going home after surgery, a licensed national flatbed truck driver must drive you home. - NO public transportation without another adult if you receive anesthesia. - We recommend that an adult stay with you for 24 hours following discharge. - We also recommend that you do not drive, make important decision, drink alcoholic beverages, or take any drugs that were not prescribed by your health care provider for at least 24 hours after your discharge time. For Pediatric surgeries, we recommend two adults accompany the child home. Follow any additional instructions given to you from your surgeon. If you or anyone in your household have experienced Covid symptoms in the past week, please notify your surgeon or the nurse liaison at the phone number below for possible testing. Telephone instructions given to _PATIENT__and asked if any additional questions and then verbalized understanding. Patient advised to call surgeon office or pre surgery nurse liaison [phone] if any additional questions.
--- NOTE | 2023-01-16 13:39 | PC.NURSE ---
[id number] WITH PT CAREGIVER, NATHANIEL. PT IS DISABLED AND SHE GAVE ME PERMISSION TO GET HEALTH HX FROM NATHANIEL. ALL PMHX REVIEWED AND HOME MEDS. NATHANIEL STATED NOT CHANGES SINCE LAST INTERVIEW. UPDATED NATHANIEL ON TIME TO ARRIVE AND DATE. ALL QUESTIONS ANSWERED.
--- NOTE | 2023-01-23 11:31 | P.PNAN_ITS ---
Anes - Initial Pre Proc Eval Procedure: Operation Date: 01/24/23 07:30 Proposed Procedures p Bilateral Laparoscopic Salpingectomy - Nyasia Parker MD Date/Time: 01/23/23 11:31 Surgeon: Nyasia Parker MD Pre Op Diagnosis: desires sterilization Patient Data Age: 27 Gender: F Height: 1.6 m Weight: 116 kg Allergies Allergy/AdvReac Type Severity Reaction Status Date / Time No Known Allergies Allergy Unknown Verified 01/24/23 06:15 Home Medications Medication Instructions Recorded Confirmed Type bupropion HCl 300 mg 24 hr tablet, 300 mg PO QAM 04/23/21 12/19/22 History extended release buspirone 15 mg tablet 15 mg BID 04/23/21 01/16/23 History risperidone 1 mg tablet 1.5 mg PO DAILY 04/23/21 01/16/23 History hydrocodone 5 mg-acetaminophen 325 1 tablet PO Q6H PRN pain #14 tabs 01/24/23 Rx mg tablet Patient hx anesthesia problems: none Family hx anesthesia problems: none Results Review: All pre-operative results and documents have been reviewed as part of the pre- operative evaluation. [facility] Past Medical History Medical History (Updated 01/24/23 @ 08:40 by Nyasia Parker MD) Anxiety Bipolar disorder Depression AUBREE (obstructive sleep apnea) Surgical History Surgical History History of open reduction and internal fixation (ORIF) procedure Right foot fracture. Hx of abdominal surgery Surgery as an , likely pyloric stenosis or malrotation. Family History Family History Mother ESRD (end stage renal disease) on dialysis Social History Social History Social History: The patient lives in [place]. Nonsmoker. Denies alcohol and illicit substance use. She designates her mother Margaret Whittington as her surrogate decision maker. Code status: Full code. Smoking status: Never smoker Living arrangements: other Additional living arrangements comments: pt lives with a [facility] Spiritual care concerns: No Anes - Eval Final PreProcedure Day of Procedure 01/23/23 11:31 Patient weight: morbidly obese Heart: regular rate and rhythm Lungs: clear to auscultation Airway: Mallampati scale class II Neurological: alert and oriented Last oral intake: >/= 8 hours ASA classification: III Emergent: no Anesthetic plan: proceed Anesthesia type and monitoring: general ETT and standard monitoring Results Review: All pre-operative results and documents have been reviewed as part of the pre- operative evaluation. Informed Consent: The patient's anesthetic plan and its attendant risks and benefits were discussed with the patient/family/POA. Questions were solicited and answers provided to the satisfaction of the patient/family/POA.
[2023-01-24] VITALS (7 sets, daily range): BP systolic 114–136; BP diastolic 68–81; PULSE 87–121; RESP 12–17; TEMP 36.3–37.2; O2SAT 95–100
[2023-01-24] MEDS: LACTATED RINGERS 1,000 ML 30 ML IV CONT (06:47)
[2023-01-24] MEDS: ACETAMINOPHEN 500 MG TABLET 1000 MG PO (06:47)
[2023-01-24] MEDS: KETOROLAC 15 MG/ML VIAL (*BKC) IV PUSH (06:49)
--- NOTE | 2023-01-24 07:13 | P.PNAN_ITS ---
Anes - Initial Pre Proc Eval Procedure: Operation Date: 01/24/23 07:30 Proposed Procedures p Bilateral Laparoscopic Salpingectomy - Nyasia Parker MD Date/Time: 01/24/23 07:13 Surgeon: Nyasia Parker MD Pre Op Diagnosis: desires sterilization Patient Data Age: 27 Gender: F Height: 1.6 m Weight: 112.2 kg Last Vital Signs Temp 98.9 F 01/24/23 06:25 Pulse 99 01/24/23 06:25 Resp 16 01/24/23 06:25 BP 136/81 01/24/23 06:25 Pulse Ox 98 01/24/23 06:25 O2 Del Method Room Air 01/24/23 06:25 Allergies Allergy/AdvReac Type Severity Reaction Status Date / Time No Known Allergies Allergy Unknown Verified 01/24/23 06:15 Home Medications Medication Instructions Recorded Confirmed Type bupropion HCl 300 mg 24 hr tablet, 300 mg PO QAM 04/23/21 12/19/22 History extended release buspirone 15 mg tablet 15 mg BID 04/23/21 01/16/23 History risperidone 1 mg tablet 1.5 mg PO DAILY 04/23/21 01/16/23 History Patient hx anesthesia problems: none Family hx anesthesia problems: none Results Review: All pre-operative results and documents have been reviewed as part of the pre- operative evaluation. [facility] Past Medical History Medical History (Updated 01/23/23 @ 11:31 by Jourdan Garcia DO) Anxiety Bipolar disorder Depression AUBREE (obstructive sleep apnea) Surgical History Surgical History History of open reduction and internal fixation (ORIF) procedure Right foot fracture. Hx of abdominal surgery Surgery as an , likely pyloric stenosis or malrotation. Family History Family History Mother ESRD (end stage renal disease) on dialysis Social History Social History Social History: The patient lives in [place]. Nonsmoker. Denies alcohol and illicit substance use. She designates her mother Margaret Whittington as her surrogate decision maker. Code status: Full code. Smoking status: Never smoker Living arrangements: other Additional living arrangements comments: pt lives with a [facility] Spiritual care concerns: No Anes - Eval Final PreProcedure Day of Procedure 01/24/23 07:13 Patient weight: morbidly obese Heart: regular rate and rhythm Lungs: clear to auscultation Airway: Mallampati scale class III Neurological: alert and oriented Last oral intake: >/= 8 hours ASA classification: III Emergent: no Anesthetic plan: proceed Anesthesia type and monitoring: general ETT and standard monitoring (have glidescope in the room) Results Review: All pre-operative results and documents have been reviewed as part of the pre- operative evaluation. Informed Consent: The patient's anesthetic plan and its attendant risks and benefits were discussed with the patient/family/POA. Questions were solicited and answers provided to the satisfaction of the patient/family/POA.
--- NOTE | 2023-01-24 07:20 | P.HP_ITS ---
H&P: HPI History of Present Illness Date/Time: 01/24/23 07:20 Chief Complaint: sterilization Narrative: Cheryl is a 27yo G0 who presents for elective sterilization via LSC bilateral salpingectomy. Her mother is her guardian and they are both certain they want this. Cheryl has had 3 sequential nexplanons as she is certain she does not want children. She has some developmental delay. She is adopted. 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 [facility] Past Medical History Medical History (Updated 01/24/23 @ 07:22 by Nyasia Parker MD) Anxiety Bipolar disorder Depression AUBREE (obstructive sleep apnea) Surgical History Surgical History History of open reduction and internal fixation (ORIF) procedure Right foot fracture. Hx of abdominal surgery Surgery as an infant, likely pyloric stenosis or malrotation. Family History Family History Mother ESRD (end stage renal disease) on dialysis Social History Social History Social History: The patient lives in [place]. Nonsmoker. Denies alcohol and illicit substance use. She designates her mother Margaret Whittington as her surrogate decision maker. Code status: Full code. Smoking status: Never smoker Living arrangements: other Additional living arrangements comments: pt lives with a [facility] concerns: No Meds Home Medications and Allergies Home Medications Medication Instructions Recorded Confirmed Type bupropion HCl 300 mg 24 hr tablet, 300 mg PO QAM 04/23/21 12/19/22 History extended release buspirone 15 mg tablet 15 mg BID 04/23/21 01/16/23 History risperidone 1 mg tablet 1.5 mg PO DAILY 04/23/21 01/16/23 History Allergies Allergy/AdvReac Type Severity Reaction Status Date / Time No Known Allergies Allergy Unknown Verified 01/24/23 06:15 Vital Signs Vital Signs - 24 hr 01/24/23 06:25 Temperature 98.9 F Pulse Rate 99 Respiratory Rate 16 Blood Pressure 136/81 Pulse Oximetry 98 Oxygen Delivery Room Air Assessment and Plan Assessment and plan (1) Request for sterilization: Code(s): Z30.2 - Encounter for sterilization Status: Acute Plan consented for LSC bilateral salpingectomy, both her and mother signed consent. will proceed.
--- NOTE | 2023-01-24 07:23 | WPDHPUPDATE1 ---
History and Physical Update Update Date/Time: 01/24/23 07:23 History and Physical has been reviewed, including an updated exam of the patient. There are NO changes in the patient's condition. Risks, benefits, and alternatives have been discussed and questions answered. Patient agrees to proceed with procedure.
[2023-01-24] MEDS: ceFAZolin 2 GM/D5W 50 ML 2 GM/50 ML BAG IVPB (07:36)
[2023-01-24] MEDS: BUPIVACAINE/EPINEPHRINE 0.25% 10 ML VIAL 20 ML INFILTRATE (08:23)
--- NOTE | 2023-01-24 08:37 | P.OP_ITS ---
Procedure Note - Detailed Date of Procedure 01/24/23 Pre-op Diagnosis desires sterilization Post-op Diagnosis Same Procedure Performed Laparoscopic Bilateral Salpingectomy Surgeon Nyasia Parker MD Anesthesia General Indications undesired future fertility Findings copious adhesions in bilateral upper quadrants. normal uterus, tubes, and ovaries. Description of Procedure The patient was taken to the OR and placed in dorthal lithotomy in [facility]. She received general anesthesia. A speculum was placed and the cervix grasped with a single tooth tenaculum and an acorn uterine manipulator placed easily. A stanton catheter had previously been placed. She had received preoperative antibiotics. A 5mm subumbilical skin incision was made and using direct visualization, the trocar was inserted intraperitoneally. The abdomen was insufflated and the pelvis inspected with the above findings. Bilateral 5mm incisions were made and trocars were placed under direct visualization. The right tube was grasped and elevated and using the Ligasure device, the tube was sequentially cauterized and ligated and removed through the trocar and sent to pathology. Similarly, on the left, the tube was removed using the Ligasure device. Hemostasis was noted. The upper abdomen was inspected with the findings noted above. The trocars were removed and the Co2 was removed from the abdomen. The skin was closed with 4-0 vicryl and steri strips. The patient tolerated the procedure well and was taken to the recovery room in stable condition. EBL 10cc. Estimated Blood Loss 10 Drains No Packing No Pathology Yes Complications No immediate complications Condition Stable Disposition Same day
--- NOTE | 2023-01-24 09:11 | SUR.PHASEI ---
0911: Simple mask removed.
[2023-01-24] MEDS: oxyCODONE HCL (*CRX) 5 MG TAB IR PO (09:55)
== END 2023-01-24 10:26 | disposition home or self-care (01) ==
PROVIDERS: Visit Provider Obstetrics & Gynecology
PROC: (CPT 49320; principal; 2023-01-24 07:30)
DX: Z30.2 Encounter for sterilization (principal); F31.9 Bipolar disorder, unspecified; F41.9 Anxiety disorder, unspecified; G47.33 Obstructive sleep apnea (adult) (pediatric); E66.01 Morbid (severe) obesity due to excess calories; Z68.41 Body mass index [BMI] 40.0-44.9, adult
CPT/HCPCS: 58661; 88302; A9270; J0690; J1100; J1885; J2250; J2371; J2405; J2704; J3010; J7030; J7120

== ENCOUNTER 2023-12-12 08:32 | Emergency (ER) | payer OTHER, SELFPAY ==
--- NOTE | 2023-12-12 08:40 | ED.URI ---
HPI - URI/Sore Throat General Chief Complaint: Upper Respiratory Infection Stated Complaint: Cold symptoms Time Seen by Provider: 12/12/23 08:43 Source: patient, RN notes reviewed and old records reviewed Mode of arrival: ambulatory Limitations: no limitations History of Present Illness HPI Narrative: 28 year Old female presents to the [facility] with concerns for cold-like symptoms. Patient reports nasal congestion since Monday, 2 days. Has not taken anything for her symptoms. Denies cough, fevers, nausea, vomiting, diarrhea. Denies a sore throat. Onset (ago): day(s) (2) Able to tolerate fluids by mouth: Yes Exacerbating factors: nothing Relieving factors: nothing Treatments prior to arrival: none Related Data Home Medications Medication Instructions Recorded Confirmed bupropion HCl 300 mg 24 hr tablet, 300 mg PO QAM 04/23/21 12/12/23 extended release buspirone 15 mg tablet 15 mg PO TID 04/23/21 12/12/23 risperidone 1 mg tablet 1.5 mg PO DAILY 04/23/21 12/12/23 Allergies Allergy/AdvReac Type Severity Reaction Status Date / Time No Known Allergies Allergy Unknown Verified 12/12/23 08:38 Review of Systems Review of Systems: All systems reviewed & are unremarkable except as noted in HPI and below Constitutional: Constitutional: Reports no additional constitutional complaints Eyes: Eyes: Reports no additional eye complaints ENT: Reports as per HPI, Reports nasal congestion, Reports sinus pressure and Denies sore throat Cardiovascular: Cardiovascular: Reports no additional cardiovascular complaints, Denies chest pain and Denies dyspnea Respiratory: Respiratory: Reports no additional respiratory complaints, Denies chest congestion, Denies cough and Denies dyspnea Gastrointestinal: Gastrointestinal: Reports no additional gastrointestinal complaints, Denies abdominal pain, Denies nausea and Denies vomiting Musculoskeletal: Musculoskeletal: Reports no additional musculoskeletal complaints Integumentary/Breasts: Skin/Breast: Reports system reviewed and no additional complaints, except as docu Neurologic: Reports system reviewed and no additional complaints, except as documented Psychiatric: Psychiatric: Reports no additional psychiatric complaints Allergic/Immunologic: Allergic/Immunologic: Reports no additional allergic/immunologic complaints PMFSH Past Medical History Medical History Anxiety Bipolar disorder Depression AUBREE (obstructive sleep apnea) Surgical History Surgical History History of open reduction and internal fixation (ORIF) procedure Right foot fracture. Hx of abdominal surgery Surgery as an infant, likely pyloric stenosis or malrotation. Family History Family History Mother ESRD (end stage renal disease) on dialysis Social History Social History Social History: The patient lives in [place]. Nonsmoker. Denies alcohol and illicit substance use. She designates her mother Margaret Whittington as her surrogate decision maker. Code status: Full code. Smoking status: Never smoker Living arrangements: other Additional living arrangements comments: pt lives with a [employer] Spiritual care concerns: No Comments At the time of my signature, I reviewed and agree with the nursing past medical, surgical, social, and family history. There is no relevant family history pertinent to the patient complaint. Exam Const: General: cooperative, healthy appearing, comfortable, no acute distress, well developed, alert and well nourished Nutritional Appearance: well nourished and obese morbidly obese Orientation/consciousness: patient oriented x3 Limitations: no limitations HENMT: Head: normal to inspection Ears: hearing grossly normal bilaterally, external ears normal, EAC's normal and
[2023-12-12 08:48] VITALS: BP 120/62; PULSE 84; RESP 18; TEMP 36.3; O2SAT 98
== END 2023-12-12 09:03 | disposition home or self-care (01) ==
PROVIDERS: Emergency Provider Nurse Practitioner
DX: J06.9 Acute upper respiratory infection, unspecified (principal); H65.03 Acute serous otitis media, bilateral; Z20.822 Contact with and (suspected) exposure to COVID-19; F41.9 Anxiety disorder, unspecified; F31.9 Bipolar disorder, unspecified
CPT/HCPCS: 87426; 87804; 99213; G0463

== ENCOUNTER 2024-02-28 09:10 | Emergency (ER) | payer OTHER, SELFPAY ==
[2024-02-28 09:18] VITALS: BP 133/88; PULSE 83; RESP 17; TEMP 36.6; O2SAT 100
--- NOTE | 2024-02-28 09:25 | ED.SKABFB ---
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 No systemic symptoms Related Data Home Medications Medication Instructions Recorded Confirmed bupropion HCl 300 mg 24 hr tablet, 300 mg PO QAM 04/23/21 12/12/23 extended release buspirone 15 mg tablet 15 mg PO TID 04/23/21 12/12/23 risperidone 1 mg tablet 1.5 mg PO DAILY 04/23/21 12/12/23 Allergies Allergy/AdvReac Type Severity Reaction Status Date / Time No Known Allergies Allergy Unknown Verified 12/12/23 08:38 Review of Systems Review of Systems: All systems reviewed & are unremarkable except as noted in HPI and below PMFSH Past Medical History Medical History Anxiety Bipolar disorder Depression AUBREE (obstructive sleep apnea) Surgical History Surgical History History of open reduction and internal fixation (ORIF) procedure Right foot fracture. Hx of abdominal surgery Surgery as an , likely pyloric stenosis or malrotation. Family History Family History Mother ESRD (end stage renal disease) on dialysis Social History Social History Social History: The patient lives in [place]. Nonsmoker. Denies alcohol and illicit substance use. She designates her mother Margaret Whittington as her surrogate decision maker. Code status: Full code. Smoking status: Never smoker Living arrangements: other Additional living arrangements comments: pt lives with a gardian Spiritual care concerns: No Exam Narrative: EXAMINATION OF ORGAN SYSTEMS/BODY AREAS: Constitutional: Vital signs per nursing GENERAL:[No acute distress, non-toxic appearing.] HEAD: Normal with no signs of head trauma. EYES: EOMI, conjunctiva normal ENT: Hearing grossly intact LUNGS: Nonlabored breathing. HEART: [Regular rate and rhythm] ABD: no distension EXT: Normal range of motion SKIN: Tiny slightly tender indurated lump to R labia majora; no pointing or significant fluctuance NEURO: [Alert and oriented x 3. No gross focal sensory or strength deficits.] PSYCH: Normal affect Course Vital Signs Vital signs: Vital Signs Temperature 98 F 02/28/24 09:18 Pulse Rate 83 02/28/24 09:18 Respiratory Rate 17 02/28/24 09:18 Blood Pressure 133/88 02/28/24 09:18 Pulse Oximetry 100 02/28/24 09:18 Oxygen Delivery Room Air 02/28/24 09:18 Temperature 98 F 02/28/24 09:18 Pulse Rate 83 02/28/24 09:18 Respiratory Rate 17 02/28/24 09:18 Blood Pressure 133/88 02/28/24 09:18 Pulse Oximetry 100 02/28/24 09:18 Oxygen Delivery Room Air 02/28/24 09:18 MDM - Skin/Abscess/Foreign Bdy MDM Narrative Medical decision making narrative: MEDICAL DECISION MAKING AND COURSE IN THE ED WITH INTERPRETATION/REVIEW OF DIAGNOSTIC STUDIES: Electronic medical record was reviewed. Patient presented to the ED with complaint of slightly painful skin lump. Vitals [were within acceptable limits]. Physical exam revealed tiny area of tenderness and induration consistent with abscess, without fluctuance that may benefit from drainage and I do feel is a little too deep to try needle aspiration. [Patient was given Bactrim here and a course to continue at home.] The patient is discharged home in stable condition. I have asked the patient to return to the emergency department for worsening pain, worsening and increasing size of skin infection, fevers/chills. The patient is instructed to follow up with her OBGYN in [2] days. did also discuss avoiding shaving to avoid further episodes of folliculitis. Patien
[2024-02-28] MEDS: SULFAMETHOXAZOLE/TRIMETHOPRIM 800/160 MG DS TABLET 1 TAB PO (09:28)
== END 2024-02-28 09:45 | disposition home or self-care (01) ==
LOC: ANHED 09:37
PROVIDERS: Emergency Provider Emergency Medicine; PCP Physician Assistant
DX: L73.9 Follicular disorder, unspecified (principal); F41.8 Other specified anxiety disorders; F31.9 Bipolar disorder, unspecified; G47.33 Obstructive sleep apnea (adult) (pediatric)
CPT/HCPCS: 99283; A9270

== ENCOUNTER 2024-03-02 04:15 | Emergency (ER) | payer OTHER, SELFPAY ==
[2024-03-02 04:17] VITALS: BP 129/78; PULSE 88; RESP 15; TEMP 36.4; O2SAT 91
[2024-03-02 05:07] LABS: Basophils Percent Auto 0.4 % (0.2-1.2); Eosinophils Percent Auto 0.4 % (0-4.4); Hematocrit 40.1 % (37.0-47.0); Hemoglobin 13.2 g/dL (12.0-15.0); Immature Granulocyte Absolute 0.03 K/mm3 (0.00-0.031); Immature Granulocyte Percent A 0.3 % (0-0.5); Lymphocytes Absolute Auto 2.53 K/mm3 (0.9-3.2); Lymphocytes Percent Auto 24.2 % (18.3-44.2); Mean Corpuscular HGB Conc 32.9 g/dl (32-36); Mean Corpuscular Hemoglobin 28.1 pg (26-34); Mean Corpuscular Volume 85.3 fl (80-100); Mean Platelet Volume 10.5 fl (7.4-10.4); Monocytes Absolute Auto 0.9 K/mm3 (0.1-0.6); Monocytes Percent Auto 8.4 % (2.6-8.5); Neutrophils Absolute Auto 6.9 K/mm3 (1.3-6.7); Neutrophils Percent Auto 66.3 % (45.5-73.1); Platelet Count Result 302 k/mm3 (150-375); Red Cell Distribution Width 13.4 % (11.5-14.5); White Blood Count 10.5 K/mm3 (4.5-10.0)
[2024-03-02 05:11] LABS: Add Urine Microscopic? YES; Appearance Urine Clear (Clear); Bacteria Urine None Seen /hpf; Bilirubin Urine Negative (Negative); Blood Urine 3+ (Negative); Color Urine Yellow (Yellow); Glucose Urine UA Negative (Negative); Ketones Urine Trace mg/dL (Negative); Leukocyte Esterase Ur Negative LEU/UL (Negative); Nitrate Urine Negative (Negative); Non Pathogenic Casts 0-2; Protein Urine Trace mg/dL (Negative); Specific Grav Ur 1.034 (1.001-1.035); Squamous Epithelial Cell Urine Occasional /hpf (Few); WBC Urine 0-5 /hpf (0-3)
[2024-03-02 05:19] LABS: Acetaminophen < 10 ug/mL (10-30); Ethanol < 10 mg/dL (<10); Salicylate < 1.0 mg/dL (2-20)
[2024-03-02 05:27] LABS: Amphetamine Screen Urine Negative (Negative); Barbiturate Screen Urine Negative (Negative); Benzodiazepines Screen Urine Negative (Negative); Cannabinoid Screen Urine Negative (Negative); Cocaine Screen Urine Negative (Negative); Methadone Screen Urine Negative (Negative); Opiate Screen Urine Negative (Negative); Phencyclidine Screen Urine Negative (Negative)
[2024-03-02 05:48] LABS: Influenza A QL RT-PCR Negative (Negative); Influenza B QL RT-PCR Negative (Negative); RSV RNA, RT-PCR Negative (Negative); SARS-CoV-2 RNA PCR Negative (Negative)
[2024-03-02 06:01] LABS: Alanine Aminotransferase 14 U/L (6-35); Albumin Level 4.3 g/dL (3.5-5.1); Alkaline Phosphatase 71 U/L (38-126); Anion Gap 12 mmol/L (4-12); Aspartate Amino Transferase 23 U/L (14-36); Bilirubin,Total 0.2 mg/dL (0.2-1.3); Blood Urea Nitrogen 15 mg/dL (7-17); Carbon Dioxide 22 mmol/L (22-30); Chloride 104 mmol/L (98-107); Estimated CRCL calculation 78 ml/min; Estimated Glomerular Filt Rate 58; Glucose 102 mg/dL (65-110); Sodium 138 mmol/L (137-145)
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
[2024-03-02 08:31] VITALS: BP 133/74; PULSE 78; RESP 14; O2SAT 97
== END 2024-03-02 08:36 | disposition home or self-care (01) ==
PROVIDERS: Emergency Medicine; Emergency Provider Student in an Organized Health Care Education/Training Program; PCP Physician Assistant
DX: F31.9 Bipolar disorder, unspecified (principal); F41.9 Anxiety disorder, unspecified; G47.33 Obstructive sleep apnea (adult) (pediatric); Z20.822 Contact with and (suspected) exposure to COVID-19
CPT/HCPCS: 36415; 80053; 80307; 81001; 84443; 85025; 87637; 99284